=== PATIENT | male | born 1970 | race Caucasian/White ===

== ENCOUNTER 2017-10-16 09:13 | Outpatient (CLI) | payer OTHER ==
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
== END 2017-10-16 09:14 | disposition home or self-care (01) ==
LOC: SCSMRI 09:13
PROVIDERS: ATTEND Family Medicine
DX: S50.02XA Contusion of left elbow, initial encounter (principal); M77.12 Lateral epicondylitis, left elbow

== ENCOUNTER 2018-10-29 14:45 | Inpatient (IN) | payer OTHER ==
[2018-10-29] MEDS ORDERED: Ondansetron PF 4 MG/2 ML Vial ONE (16:21)
[2018-10-29] MEDS ORDERED: Morphine 4 MG/ML VIAL ONE (16:21)
[2018-10-29] MEDS ORDERED: Bupivacaine HCl 0.5%/Epinephrine 1:200,000/PF 30 ml Vial ONE (18:40)
[2018-10-29] MEDS ORDERED: Thrombin 5000 UNITS/5 ML VIAL ONE (18:40)
[2018-10-29] MEDS ORDERED: ceFAZolin Sodium (SDC) 2 GM/100 ML BAG ONE (18:46)
--- NOTE | 2018-10-29 19:07 | MRI ---
MRI OF LUMBAR SPINE WITH AND WITHOUT CONTRAST: 10/29/18 INDICATIONS: Back pain. Numbness in the right leg. COMPARISON: Comparison made to CT lumbar spine 10/27/18. Vertebral bodies of lumbar spine maintained height and alignment. Degenerative disc changes are noted . Loss of disc space at L4-5 and L5-S1. Motion artifact degrades the sequences, especially axial sequences. Mild disc bulge and hypertrophic changes at L1-2, L2-3, and L3-4 without significant central canal or foraminal stenosis at these levels. At L4-5, there is an annular fissure with diffuse disc bulge abutting the thecal sac. There is asymme tric bulge to the right with encroachment on the exiting right nerve root and right foraminal narrowi ng. At L5-S1 level, there is a large extruded disc centrally and paracentrally to the right. There is sup erior and inferior migration of this extruded disc. Just above the L5-S1 disc space is an extruded fr agment measuring 12 mm AP dimension compressing the anterior thecal sac extending into the subarticul ar zone on the right. At the disc space, a large disc extrusion centrally and to the right compresses the thecal sac resulting in severe central canal stenosis. This large disc fragment measures 14 mm A P dimension. Inferior migration is seen with a fragment inferior to the disc space within the spinal canal centrally and to the right measuring 12 mm compressing the thecal sac and displacing the tk sing nerve root on the right. IMPRESSION: 1. Large disc extrusion at L5-S1 with both superior and inferior migration of a large extruded d isc as described above. 2. Annular fissure with broad based bulge at L4-5 as described. POS: JUAREZ
--- NOTE | 2018-10-29 19:11 | CON ---
DATE OF CONSULTATION: 10/29/2018 CHIEF COMPLAINT: Urinary incontinence. 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 He is also insensate with respect to the right leg and the saddle region including his penis, scrotum, and rectal region. He despite those findings is relatively intact from a strength perspective with the exception of minor plantar flexion weakness on the right, graded 3/4. He had an MRI scan performed emergently in the ER, which revealed the presence of a very large extruded disk fragment at the L5 level with complete obliteration of the spinal canal leading to his symptoms of cauda equina. I reviewed with him his imaging, his diagnosis, and the proposed treatment, which is emergent surgery to include decompression and diskectomy in order to give his bowel, bladder, and sensory abnormality a chance to recover. I answered all of his questions as well as those of his . I explained all the risks, benefits, and alternatives to the procedure, and they have offered what I believe to be informed consent to move forward with an L5 decompression and diskectomy. Job ID: [id number]
[2018-10-29] MEDS ORDERED: Bisacodyl 10 MG SUPP PR PRN (20:33)
[2018-10-29] MEDS ORDERED: Mag-Al 1200 mg/1200 mg/30 ML UDCUP PO PRN (20:33)
[2018-10-29] MEDS ORDERED: Cyclobenzaprine 10 MG TAB PO PRN (20:33)
[2018-10-29] MEDS ORDERED: Ondansetron PF 4 MG/2 ML Vial IVP PRN (20:33)
[2018-10-29] MEDS ORDERED: Acetaminophen/Codeine 30-300mg Tablet PO PRN (20:33)
[2018-10-29] MEDS ORDERED: Acetaminophen 325 MG TAB PO PRN (20:33)
[2018-10-29] MEDS ORDERED: Morphine 2 MG/ML SYRINGE SLOW IVP PRN (20:33)
[2018-10-29] MEDS ORDERED: diphenhydrAMINE 50 MG/ML VIAL IVP PRN (20:33)
[2018-10-29] MEDS ORDERED: Meperidine HCl/PF 25 MG/ML VIAL ONE (20:35)
[2018-10-29] MEDS ORDERED: Promethazine HCl 25 MG/ML VIAL SLOW IVP PRN (20:41)
[2018-10-29] MEDS ORDERED: Meperidine HCl/PF 25 MG/ML VIAL SLOW IVP PRN (20:41)
[2018-10-29] MEDS ORDERED: PACU-Morphine 4MG/ML VIAL SLOW IVP PRN (20:41)
[2018-10-29] MEDS ORDERED: Promethazine HCl 25 MG/ML VIAL IM PRN (20:41)
[2018-10-29] MEDS ORDERED: HYDROmorphone 2 MG/ML VIAL SLOW IVP PRN (20:41)
[2018-10-29] MEDS ORDERED: Morphine Sulfate 2 MG/ML SYRINGE SLOW IVP PRN (20:41)
[2018-10-29] MEDS ORDERED: Ondansetron HCl/PF 4 MG/2 ML Vial IVP PRN (20:41)
[2018-10-29] MEDS ORDERED: Fentanyl 100 MCG/2 ML VIAL ONE (21:11)
[2018-10-29] MEDS: Sodium Chloride 0.9% 1,000 ML IV SCH (22:35)
[2018-10-29] MEDS: CEFAZOLIN 2 GM, Admixture Fee 1 EACH in Sodium Chloride 0.9% 100 ML IVPB SCH (22:35)
[2018-10-30] MEDS: Acetaminophen/Codeine 30-300mg Tablet PO PRN ×5 (00:29→21:04)
--- NOTE | 2018-10-30 03:00 | OP ---
DATE OF PROCEDURE: 10/29/2018 TESTER EQUIPMENT: Roger Barrios PA-C INDICATION: Prevent further neurologic decline. DIAGNOSIS: Cauda equina syndrome with incontinence, numbness, and pain. PROCEDURES PERFORMED: L5 laminectomy, L5 diskectomy. ANESTHESIA: General. DESCRIPTION OF PROCEDURE: The patient was brought into the operating room and placed under general anesthesia. He was flipped from the supine to prone position on the operating room table. A linear incision was planned over the L5 spinous process. After prepping and draping, and after an appropriate operative pause, the incision was created. The soft tissues were swept away from midline. A self-retaining retractor was placed in the wound for optimal exposure. After confirming the appropriate level with C-arm fluoroscopy, rongeurs and Kerrisons were used to perform a complete laminectomy of L5. The laminectomy extended into medial third of both facet joints. The protuberant dura was identified and a large protuberant extruded disk mass in the axilla between the thecal sac and the S1 nerve root. The disk was carefully removed as were superiorly and inferiorly migrated components. At the end, the thecal sac and descending nerve roots were well decompressed. The wound was irrigated. Hemostasis was maintained throughout. The wound was then closed in anatomic layers and a pressure dressing was applied. There were no known procedural complications. Job ID: [id number]
[2018-10-30] MEDS: CEFAZOLIN 2 GM, Admixture Fee 1 EACH in Sodium Chloride 0.9% 100 ML IVPB SCH (05:26)
[2018-10-30] MEDS ORDERED: Tamsulosin HCl 0.4 MG CAP PO SCH (06:00)
[2018-10-30] MEDS ORDERED: Bisacodyl 10 MG SUPP PR SCH (10:30)
[2018-10-30] MEDS: Sodium Chloride 0.9% 1,000 ML IV SCH ×2 (11:15→22:04)
--- NOTE | 2018-10-30 11:19 | PRG ---
DATE OF SERVICE: 10/30/2018 Mr. Parra is one day status post emergent diskectomy for cauda equina syndrome. He has had improvement in the sensation in the right leg. He is ambulating in the hallways without difficulty. He continues to remain incontinent of the urine and also is having intermittent episodes of retention as well. He is also insensate along the scrotal and saddle area. I have talked with Dr. Chang. He has already visited with him. She has asked to keep him overnight so we can measure postvoid residuals with the plan to likely dismiss him home tomorrow possibly with a catheter. Overall, I am pleased with his progress as is he. He has minimal to no pain. Job ID: [id number] [facility]
--- NOTE | 2018-10-30 13:11 | CON ---
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 He states that his last bowel movement was approximately 5 to 7 days ago, has had acute onset of urinary urge incontinence with sensation of slow stream, hesitancy. Urinary frequency has been variable from every 1-2 hours to every 4-6 hours. The patient underwent L5 laminectomy, diskectomy by Dr. Barnard on October 29. The patient is being transitioned to be discharged. Due to urgency, urge incontinence, Urologic consultation obtained. I did ask the nursing staff to check his postvoid residual. Per nursing staff, approximately 220 mL of PVR was noted. He denies prior history of STD, dysuria, gross hematuria, recurrent UTI, or trauma. He denies family history of prostate cancer. He is , has 5 children. He denies prior history of incontinence. PAST MEDICAL HISTORY: As above. Cauda equina; urge incontinence, neurogenic. SURGICAL HISTORY: L5 diskectomy and laminectomy on October 29. ALLERGIES: HE HAS NO KNOWN DRUG ALLERGIES. SOCIAL HISTORY: As above. 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 Lives in a private residence with his extended family, 5 children. Denies tobacco abuse. REVIEW OF SYSTEMS: A 10-point review of systems as above, otherwise noncontributory. PHYSICAL EXAMINATION: VITAL SIGNS: Stable. He is afebrile. 97.6, 63, 18, 93, 120/73. I's and O's, he has voided approximately 550 to 400 mL, and PVR 220 per nursing staff. GENERAL: The patient appears to be in no acute distress. HEENT: Unremarkable. HEART: Regular rate. LUNGS: Clear. ABDOMEN: Soft, nontender, nondistended. : Circumcised phallus. Meatus is grossly unremarkable. Testes are descended. Prostate palpated to be approximately 25 to 30 g with no discrete nodularity. EXTREMITIES: No cyanosis, clubbing, or edema. NEUROLOGIC: The patient states that he is recovering. Sensation appears to be intact. He says that he has overall improved strength of his right lower extremity and sensation is slowly returning. Resolution of saddle-like paresthesia per the patient. PSYCHIATRIC: Appears to be appropriate and intact. PERTINENT LABORATORY DATA: White count 7, hemoglobin 15, platelets 206. Creatinine 0.82. On October 27, 2018, UA is unremarkable. CURRENT MEDICATIONS: 1. Tylenol No. 3. 2. Maalox. 3. Dulcolax. 4. Flexeril. 5. Benadryl. 6. Colace. 7. Morphine. 8. Zofran. 9. Flomax 0.4 mg, started on October 30, was just started this morning. PERTINENT IMAGING: Lumbar spine MRI demonstrates a large disk extrusion of L5- S1, annular fissure of L4-L5. IMPRESSION AND PLAN: 1. 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 2. History of urge incontinence present for the last one week with presentation of cauda equina. 3. Constipation. Physical exam is grossly unremarkable. I do agree with Flomax. We may increase Flomax to b.i.d., strict bowel regimen is advised. Importance of daily regular bowel movement to expedite return of bowel and urinary function discussed with him in detail. I will monitor his voiding status for the next 24 hours. He is to be catheterized if PVR is greater than 300 mL. Pending review of his voiding diary , decision will be made regarding [facility] teaching versus indwelling Kenny catheter observation. I do not recommend Tylenol No. 3 for pain as it is significantly constipating. Please reassess for alternative options for pain management. Conversely, if Tylenol No. 3 is provided, he must be on strict aggressive bowel regimen daily as constipation will result in persistent urinary retention. Thank you for the consult. will follow along on this admission. Job ID: [id number] [facility]ie
[2018-10-30] MEDS: Tamsulosin HCl 0.4 MG CAP PO SCH (20:59)
[2018-10-30] MEDS: Docusate 100 MG CAP PO SCH (20:59)
[2018-10-31] MEDS: Acetaminophen/Codeine 30-300mg Tablet PO PRN ×2 (04:45→09:41)
--- NOTE | 2018-10-31 09:10 | PRG ---
DATE OF SERVICE: 10/31/2018 SUBJECTIVE: The patient without complaints, doing well, he has not had a bowel movement since Sunday, I did provide a suppository yesterday, had one BM. I did instruct nursing staff to place Kenny catheter due to PVR of 820 mL. Currently , has an indwelling Kenny catheter. OBJECTIVE: ABDOMEN: Soft, nontender, nondistended. LABORATORY DATA: Urine output 3+ L, clear. His catheter was transitioned to leg bag. Instructions provided regarding leg bag, gravity bag use. His admitting UA is grossly unremarkable. IMPRESSION AND PLAN: Mr. Parra is a pleasant 48-year-old male, who was admitted for cauda equina, status post emergent laminectomy decompression. 1. Neurogenic bladder secondary to cauda equina with constipation as well. I discussed with Mr. Parra regarding importance of bowel regimen along with bladder rehab. As he does have significant postvoid residual of 820 mL, he was in overflow incontinence over the last few weeks. I informed the patient that we should allow his bladder rest with indwelling Kenny catheter due to significant PVR. He will return to clinic next week as a work-in appointment for a voiding trial. He is informed that if he is unable to successfully pass his urine, we will convert him to CIC teaching. Please discharge him with Flomax b.i.d., strict bowel regimen is advised. I did review with the patient regarding constipating side effect with Tylenol. 2. Importance of daily bowel regimen with stool softeners [id number] informed. The patient is cleared to be discharged from urologic perspective. Job ID: [id number] [facility]
--- NOTE | 2018-10-31 09:10 | PRG ---
DATE OF SERVICE: 10/31/2018 Mr. Parra is now postop day 2 following lumbar decompression in the emergent setting for cauda equina syndrome. He has continued to have increasing sensation in his right lower extremity that he is very pleased with. He still has some reduced sensation in his genitals and unfortunately has continued to have post-void residuals in the 700 and 800s, prompting Kenny catheter placement yesterday under the direction of Dr. Chang. From a surgical perspective, we believe now he can be discharged home and will do so today with planned followup in 2 weeks. He also has a followup already planned with Dr. Chang in our office in one week regarding the Kenny that has been placed, he will go home with that and will attempt spontaneous voiding in one week in our office. I will also send scripts into his pharmacy, it should be in [place] today. Job ID: [id number]
[2018-10-31] MEDS: Tamsulosin HCl 0.4 MG CAP PO SCH (09:41)
[2018-10-31] MEDS: Docusate 100 MG CAP PO SCH (09:41)
[2018-10-31 15:32] VITALS: BP 151/83; TEMP 97.8
[2018-10-31] MEDS: Sodium Chloride 0.9% 1,000 ML IV SCH (15:48)
== END 2018-10-31 17:56 | disposition home or self-care (01) | DRG 30 ==
LOC: ERS 14:45 → SDC/OP 18:37 → SURG B 20:33
PROVIDERS: ADMIT Neurological Surgery; ATTEND Neurological Surgery
PROC: 0SB20ZZ Excision of Lumbar Vertebral Disc, Open Approach (ICD-10-PCS; principal; 2018-10-29)
PROC: 01NB0ZZ Release Lumbar Nerve, Open Approach (ICD-10-PCS; 2018-10-29)
PROC: 00NY0ZZ Release Lumbar Spinal Cord, Open Approach (ICD-10-PCS; 2018-10-29)
PROC: 0T9B70Z Drainage of Bladder with Drainage Device, Via Natural or Artificial Opening (ICD-10-PCS; 2018-10-30)
DX: G83.4 Cauda equina syndrome (principal); K59.00 Constipation, unspecified; N39.498 Other specified urinary incontinence; N32.81 Overactive bladder
CPT/HCPCS: 72158; 76000; 96361; 96374; 96375; J0670; J0690; J2175; J2270; J2405; J3010; J3490

== ENCOUNTER 2018-11-14 21:23 | Inpatient (IN) | payer OTHER ==
[2018-11-14] MEDS ORDERED: Sodium Chloride 0.9% 1,000 ML IV SCH (23:49)
[2018-11-14 23:56] VITALS: BMI 31.2
[2018-11-15] MEDS: cefTRIAXone\\ROCEPHIN 2 GM in Sodium Chloride 0.9% 100 ML IVPB SCH ×2 (00:25→23:37)
[2018-11-15] MEDS: Sodium Chloride 0.9% 1,000 ML IV SCH ×4 (00:26→23:43)
[2018-11-15] MEDS ORDERED: Ondansetron PF 4 MG/2 ML Vial IVP PRN (01:36)
[2018-11-15] MEDS ORDERED: Acetaminophen 325 MG TAB PO PRN (01:36)
[2018-11-15] MEDS ORDERED: Acetaminophen 650 MG Suppository PR PRN (01:36)
[2018-11-15] MEDS ORDERED: Ondansetron ODT 4 MG TAB PO PRN (01:36)
[2018-11-15] MEDS ORDERED: Acetaminophen/Codeine 30-300mg Tablet PO PRN (01:37)
--- NOTE | 2018-11-15 03:18 | HP ---
PRIMARY CARE DOCTOR FOR THIS PATIENT: Unknown. CODE STATUS: Full code. TIME OF EVALUATION: 12:15 a.m. CHIEF COMPLAINT FOR THIS PATIENT: Burning on urination. HISTORY OF PRESENT ILLNESS: This is a 48-year-old male patient with past medical history of recent laminectomy of the lumbar area. Two weeks ago, the patient had cauda equina syndrome and has remained with neurogenic bladder. The patient went home with a catheter placed and has been having fever and burning on urination for a couple of days. For that reason, he presented to [place] and he was found to have a heart rate of 130 and fever of 102. For that reason, he is being admitted to the hospital, associated with chills. No clear triggers. No alleviating factors. Urine is positive. REVIEW OF SYSTEMS: CONSTITUTIONAL: The patient has fever, chills, and generalized weakness. RESPIRATORY: No cough, sputum production or shortness of breath. CARDIOVASCULAR: No chest pain or palpitations. GASTROINTESTINAL: No nausea. No vomiting, diarrhea or abdominal pain. PHLEBOTOMIST LAB ASSISTANT: No dizziness, headache or feeling lightheaded. GENITOURINARY: No burning on urination. Indwelling catheter is present. EXTREMITIES: No leg swelling. All other systems were reviewed and negative except for the findings mentioned above. PAST MEDICAL HISTORY: The patient has recent surgery for cauda equina syndrome with neurogenic bladder. PAST SURGICAL HISTORY: Plate and eight screws in the left leg, appendectomy, and history of recent laminectomy in the lumbar area. PSYCHIATRIC HISTORY: No previous psych history. FAMILY HISTORY: Reviewed, noncontributory to current presentation. SOCIAL HISTORY: The patient chews tobacco. No alcohol. No drug use. KNOWN ALLERGIES: No known drug allergies. REPORTED MEDICATIONS: 1. Acetaminophen. 2. Codeine. 3. Tamsulosin. PHYSICAL EXAMINATION: VITAL SIGNS: On presentation, blood pressure 116/66, with heart rate of 103, respiratory rate 18, temperature 99, pain was 0/10, and oxygen saturation was 95% on room air. GENERAL APPEARANCE: The patient is alert, oriented, in no acute distress. HEENT: Eyes, normal conjunctivae. Moist oral mucosa. Anicteric. No JVD. RESPIRATORY: Bilateral air entry. No rales. No wheezes. Symmetric expansion. CARDIOVASCULAR: Normal rate. Regular rhythm. No murmurs. No gallop. No edema. ABDOMEN: Soft. Normal bowel sounds. MUSCULOSKELETAL: Baseline range of motion and strength. SKIN: Warm and intact. No pallor. No rash. No redness. Capillary refill seems to be intact. NEUROLOGIC: No evidence of any new focal weakness. Cranial nerves seems to be intact. PSYCHIATRIC: The patient is in good mood. No anxiety. Optimal judgment. GENITOURINARY: The patient has distention of the bladder with indwelling Kenny catheter. DIAGNOSTIC DATA: Chest x-ray was done, was negative. LABORATORY DATA: Reviewed. The patient has a white count of 13.7, hemoglobin 15.3, MCV 93.7, and platelet count 288. Chemistry; sodium 137, potassium 3.9, chloride 102, carbon dioxide 23, anion gap 16, BUN 14, creatinine 0.87, GFR greater than 90, and glucose 111. Lactic acid 1.2. Calcium 9.8. Total bilirubin 1.0. LFTs were normal. Urine was done, it was positive for 21 to 50 white counts in urine with urine leukocyte esterase. ASSESSMENT AND PLAN: The patient will be placed in the hospital with following medical problems. 1. Urinary tract infection due to indwelling catheter. The patient has been placed on antibiotics and we will follow cultures. We will adjust as per sensitivity. 2. Neurogenic bladder with indwelling catheter, Kenny. This will place him at risk for recurrent infections as the patient had been in the hospital recently. The patient follows with Urology as outpatient, has a followup appointment this week. 3. Deep venous thrombosis prophylaxis. 4. Sepsis. The patient has white count of 13.7. The patient presented with fever. Source is urinary tract infection. Treatment as above. We will hydrate as needed. Job ID: [id number]
[2018-11-15 04:54] LABS: #Eosinphils 0.1 thou/uL (0.0-0.7); #Lymphocytes 2.6 thou/uL (1.20-3.40); #Monocytes 1.3 thou/uL (0.11-0.59); #Neutrophils 7.4 thou/uL (1.40-6.50); %Basophils 0.4 % (0.0-1.0); %Eosinophils 1.2 % (0.0-10.0); %Lymphocytes 22.4 % (21.0-51.0); %Monocytes 11.2 % (0.0-10.0); %Neutrophils 64.8 % (42.0-75.0); Hemoglobin 12.6 g/dL (14.0-18.0); Mean Corpuscular Hemoglobin 31.3 pg (27.0-31.0); Mean Corpuscular Volume 95.1 fL (78.0-98.0); Mean Platelet Volume 8.3 fL (7.4-10.4); Platelet Count 230 thou/uL (130-400); RBC Distribution Width 11.1 % (11.5-14.5); Red Blood Cell (RBC) Count 4.01 mill/uL (4.70-6.10); White Blood Cell (WBC) Count 11.5 thou/uL (4.8-10.8)
[2018-11-15 05:16] LABS: Anion Gap 12 mmol/L (10-20); BUN (Urea Nitrogen) 13 mg/dL (8.9-20.6); Calc. Creatinine Clearance 194 mL/min (70-130); Calcium 8.7 mg/dL (7.8-10.44); Carbon Dioxide 23 mmol/L (22-29); Chloride 105 mmol/L (98-107); Estimated GFR-MDRD Greater than 90; Glucose 108 mg/dL (70-105); Potassium 3.7 mmol/L (3.5-5.1); Sodium 136 mmol/L (136-145)
[2018-11-15] MEDS ORDERED: Bisacodyl 10 MG SUPP PR PRN (07:31)
[2018-11-15] MEDS: Docusate 100 MG CAP PO SCH ×2 (08:05→20:29)
[2018-11-15] MEDS: Tamsulosin HCl 0.4 MG CAP PO SCH ×2 (08:05→20:29)
[2018-11-15] MEDS: Cyclobenzaprine 10 MG TAB PO SCH ×3 (08:05→20:29)
[2018-11-15] MEDS: Enoxaparin Sodium 40 MG/0.4 ML SYRINGE SC SCH (08:06)
--- NOTE | 2018-11-15 10:23 | CON ---
DATE OF CONSULTATION: 11/15/2018 REASON FOR CONSULT: UTI, neurogenic bladder. HISTORY OF PRESENT ILLNESS: Mr. Parra is a pleasant 48-year-old male, whom I had seen as an inpatient consultation per request by Dr. Barnard as he underwent emergent diskectomy and laminectomy as he presented with cauda equina syndrome with history of urinary retention, severe constipation. His lower extremity strength continues to improve, he continues to have saddle distribution paresthesia. He does have some sensation to void and has an indwelling urethral Kenny catheter. I saw him as an outpatient. After evaluating him in-house, we discussed transitioning to CIC for bladder rehabilitation. He declined CIC, requested Kenny catheter to remain in situ for few more weeks and then repeat a voiding trial. He had been constipated, Tylenol No. 3 was provided by [facility] and has had significant constipation. He is passing gas, continues to be constipated with small bowel movements. He denies nausea or vomiting. He presented to an outside emergency room due to history of malaise, fever, or chills. Per review of records, he presented with fever of 102, tachycardic at 130. With fluids and IV antibiotics, he has clinically improved. Urine culture has been ordered pending, and Kenny catheter was exchanged at the presenting emergency room. Currently, he is resting comfortably, at bedside. Unfortunately due to insurance issues, the patient had to transition care to [facility], has appointment with Dr. Chapman next week. PAST MEDICAL HISTORY: Cauda equina, October 2018. PAST SURGICAL HISTORY: Appendectomy; left leg surgery; L5 laminectomy and diskectomy by Dr. Barnard, October 29, 2018, FAMILY HISTORY: Positive coronary artery disease and CVA. 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 Denies illicit drug use. ALLERGIES: NO KNOWN DRUG ALLERGIES. REVIEW OF SYSTEMS: Ten-point review of systems as above, otherwise noncontributory. PHYSICAL EXAMINATION: VITAL SIGNS: Yesterday, temperature 102. Currently, he is afebrile, 98, 82, 20 , 97, 116/69. GENERAL: The patient appears to be resting comfortably. Looks well. HEENT: Unremarkable. HEART: Regular rate. LUNGS: Clear. ABDOMEN: Soft, nontender, nondistended. No rigidity. : Kenny catheter draining yellow urine. Testes are descended with no evidence of epididymo-orchitis changes or swelling. EXTREMITIES: No cyanosis, clubbing, or edema. NEUROLOGIC: He continues to have saddle distribution paresthesia, otherwise lower extremity strength and sensation appears to be intact. PERTINENT LABORATORY DATA: White count 11, hemoglobin 12, platelets 230. Creatinine 0.7. UA from November 14 demonstrates 100 protein, 21 to 50 rbc's, 21 to 50 wbc's, moderate leukocytes, negative nitrites, 3+ bacteria. Culture is pending. Currently, he is on Rocephin. IMPRESSION AND PLAN: Mr. Parra is a pleasant 48-year-old male with cauda equina syndrome, status post decompression laminectomy. 1. Cauda equina resulting in neurogenic bladder retention. 2. Constipation. I do recommend discontinuing Tylenol No. 3 as it is severely constipating. Agree with broad-spectrum antibiotics with Rocephin as he is responding. I am okay for him to continue. Indwelling Kenny catheter to continue. As advised, I do prefer the patient to be on CIC subsequently; however, this is not the time to transition to CIC in presence of an active UTI. We will continue indwelling urethral Kenny catheter. Await culture sensitivity to finalize and can be transitioned to oral antibiotics if afebrile for more than 24 to 48 hours. Anticipate the patient will be in-house likely through the weekend. He has followup with [facility] to transition care next week. Continue Flomax. Job ID: [id number] [facility]
--- NOTE | 2018-11-15 12:29 | PDOC.EVN ---
Event Note - Event Note Event Note: Reviewed records. Examined patient. Has UTI due to indwelling Kenny. Doing well right now. Await cultures and continue IV Rocephin for now. Ok to ambulate and may go outside.
[2018-11-16] MEDS: Sodium Chloride 0.9% 1,000 ML IV SCH (08:03)
[2018-11-16] MEDS: Cyclobenzaprine 10 MG TAB PO SCH ×3 (08:03→20:47)
[2018-11-16] MEDS: Docusate 100 MG CAP PO SCH ×2 (08:03→20:47)
[2018-11-16] MEDS: Tamsulosin HCl 0.4 MG CAP PO SCH ×2 (08:03→20:47)
[2018-11-16] MEDS: Enoxaparin Sodium 40 MG/0.4 ML SYRINGE SC SCH (08:04)
--- NOTE | 2018-11-16 11:32 | PRG ---
DATE OF SERVICE: 11/16/2018 SUBJECTIVE: The patient without complaints. Denies chills or fever. He has been having bowel movements, however, they are very scant and hard, passing flatus. Denies nausea or vomiting. OBJECTIVE: VITAL SIGNS: Stable. Afebrile. 2220 in's, 6.5 L out, he is negative 4.3 L. ABDOMEN: Soft, nontender, nondistended. Kenny catheter clear. LABORATORY DATA: Blood culture negative thus far. Urine culture, greater than 100,000 gram-negative rods and sensitivity, ID in progress. IMPRESSION AND PLAN: 1. Mr. Parra is a pleasant 48-year-old male with history of cauda equina syndrome, recently underwent emergent laminectomy. 2. Cauda equina with neurogenic bladder and constipation. Aggressive bowel regimen is advised. Please provide the patient Dulcolax x1, repeat if needed, fleets enema p.r.n., discussed with the patient at bedside. His urine culture and sensitivity reviewed, anticipated, we will finalize sometime tomorrow. When appropriate sensitivity, targeted antibiotic should be advised for minimum of 7 to 10 days for complicated urinary tract infection. He has close followup with [facility] transitioning care with Urology due to insurance issues. will follow in- house. Job ID: [id number] [facility]
--- NOTE | 2018-11-16 14:20 | PDOC.HOSPP ---
- Subjective Subjective: Doing well. Had some frustration last evening with the BM. He works 2p to 2a and is not on an normal schedule. Typically has BM in the afternoon. Yesterday had some trouble getting himself clean. Has poor sensation around the mid-section. Has been having BM's but less productive than usual. - Objective Vital Signs & Weight: Vital Signs (12 hours) Temp Pulse Resp BP BP Pulse Ox 11/16/18 07:46 98.5 F 92 16 117/78 97 11/16/18 04:00 98.1 F 87 18 129/82 97 Weight Weight 243 lb 9.6 oz I&O: 11/15/18 11/16/18 11/17/18 06:59 06:59 06:59 Intake Total 2220 Output Total 6550 Balance -4330 Result Diagrams: 11/15/18 03:51 11/15/18 03:51 ROS - Medication Medications: Active Medications Generic Name Dose Route Start Last Admin Trade Name Freq PRN Reason Stop Dose Admin Cyclobenzaprine HCl 10 mg 11/15/18 09:00 11/16/18 08:03 Flexeril PO 10 mg TID CASS Administration Docusate Sodium 100 mg 11/15/18 09:00 11/16/18 08:03 Colace PO 100 mg BID CASS Administration Enoxaparin Sodium 40 mg 11/15/18 09:00 11/16/18 08:04 Lovenox SC Not Given 0900 [facility] Ceftriaxone Sodium 2 gm/ 100 mls @ 200 mls/hr 11/14/18 23:59 11/15/18 23:37 Sodium Chloride IVPB 11/20/18 10:00 100 mls Q24HR CASS Administration Tamsulosin HCl 0.4 mg 11/15/18 09:00 11/16/18 08:03 Flomax PO 0.4 mg BID CASS Administration - Exam NAD, awake alert ENT: normocephalic atraumatic, no oropharyngeal lesions, moist mucosa Neck: supple, symmetric, no JVD, no thyromegaly, no lymphadenopathy, no carotid bruit Heart: RRR, no murmur, no gallops, no rubs, normal peripheral pulses Respiratory: CTAB, no wheezes, no rales, no ronchi, normal chest expansion, no tachypnea, normal percussion Gastrointestinal: soft, non-tender, non-distended, normal bowel sounds, no palpable masses, no hepatomegaly, no splenomegaly, no bruit Musculoskeletal: normal tone Psychiatric: normal affect, normal behavior, A&O x 3 Hosp A/P (1) Sepsis Code(s): A41.9 - SEPSIS, UNSPECIFIED ORGANISM Status: Acute (2) Neurogenic bladder Code(s): N31.9 - NEUROMUSCULAR DYSFUNCTION OF BLADDER, UNSPECIFIED Status: Acute (3) UTI (urinary tract infection) Status: Acute (4) Cauda equina syndrome Code(s): G83.4 - CAUDA EQUINA SYNDROME Status: Acute (5) S/P lumbar discectomy Code(s): Z98.890 - OTHER SPECIFIED POSTPROCEDURAL STATES Status: Acute - Plan Blood cultures negative so far. Urine culture looks like skin michelle only. Continue Rocephin and follow up cultures. Trying to be as narrow with the focus of abx as we can. Culture may not be very helpful. Continue Kenny. Will follow up with his Urologist at [facility] after DC. Stool softeners and laxative added by Urology.
[2018-11-16] MEDS: cefTRIAXone\\ROCEPHIN 2 GM in Sodium Chloride 0.9% 100 ML IVPB SCH (23:45)
[2018-11-17 07:39] VITALS: BP 122/76; TEMP 97.8
[2018-11-17] MEDS: Cyclobenzaprine 10 MG TAB PO SCH (10:05)
[2018-11-17] MEDS: Docusate 100 MG CAP PO SCH (10:05)
[2018-11-17] MEDS: Enoxaparin Sodium 40 MG/0.4 ML SYRINGE SC SCH (10:05)
[2018-11-17] MEDS: Tamsulosin HCl 0.4 MG CAP PO SCH (10:05)
--- NOTE | 2018-11-17 12:13 | PRG ---
DATE OF SERVICE: 11/17/2018 SUBJECTIVE: The patient is without complaints. Doing well. Denies fever, chills, or rigors. OBJECTIVE: VITAL SIGNS: Stable. He has been afebrile. ABDOMEN: Soft, nontender, nondistended. : Kenny catheter, clear dilute urine. EXTREMITIES: No cyanosis, clubbing, or edema. He did have a moderate-sized bowel movement yesterday. PERTINENT LABORATORY DATA: Urine culture finalized, demonstrating Serratia, sensitive to Rocephin which he has been treated in-house, resistant to cefoxitin and nitrofurantoin. Spoke with hospitalist. They would discharge the patient with ciprofloxacin. IMPRESSION: 1. Mr. Parra is a pleasant 48-year-old male with history of cauda equina syndrome, status post emergent laminectomy, decompression. 2. Constipation and neurogenic bladder urinary retention, indwelling Kenny catheter. 3. Catheter-related urinary tract infection with history of fever. Blood culture negative. The patient is clinically stable to be discharged as his current culture and sensitivity are finalized. Recommend ciprofloxacin for a minimum of 14 days as he presented with complex urinary tract infection fever. Previously, patient declined CIC. However, he is open to this when he recovers from recent urinary tract infection event. He desires to be discharged with indwelling Kenny catheter to gravity bag as it is easier for him to take care of at home , instead of leg bag. Informed to call me if any questions or concerns. Due to insurance issues, he will be transitioning to [facility], appointment with Dr. Chapman this Sunday. will sign off. Job ID: [id number] [facility] [place] [facility]
--- NOTE | 2018-11-17 23:34 | DIS ---
DATE OF ADMISSION: 11/14/2018 DATE OF DISCHARGE: 11/17/2018 PRIMARY CARE PROVIDER: None. DISCHARGE DIAGNOSES: 1. Sepsis secondary to catheter associated urinary tract infection. 2. Neurogenic bladder with indwelling catheter. CONDITION OF PATIENT ON THE DAY OF DISCHARGE: Stable. I assessed Mr. Parra on the day of discharge. He denies any chest pain or shortness of breath. Vital signs are stable. S1 and S2 are heard, regular. Lungs are clear to auscultation bilaterally. CONSULTATIONS DURING THIS HOSPITALIZATION: Urology, Dr. Chang. DISCHARGE MEDICATIONS: 1. Tylenol No.3 p.r.n. 2. Flexeril 10 mg 3 times a day. 3. Flomax 0.4 mg 2 times a day. 4. Ciprofloxacin 500 mg 2 times a day for 14 days. HOSPITAL COURSE: Mr. Parra is a pleasant 48-year-old gentleman, who was admitted to [facility] on 11/15/2018, for sepsis secondary to catheter associated urinary tract infection in the context of neurogenic bladder with indwelling catheter. He was seen by Urology Service. Urine cultures grew Serratia marcescens, which was resistant to cefoxitin and nitrofurantoin, but sensitive to amikacin, cefepime, ceftazidime, ceftriaxone, ciprofloxacin, gentamicin, levofloxacin, meropenem, tobramycin, and Bactrim. The preliminary urine culture was also growing a gram-negative lloyd, coagulase-negative Staphylococcus and nonhemolytic Streptococcus. He improved clinically. He has been cleared for discharge by Urology Service with prescription for ciprofloxacin 500 mg 2 times a day for 2 weeks. He will follow up with his urologist, Dr. Chapman in 3 days time. FOLLOWUP: With urologist in 3 days time. Many thanks for allowing me to participate in your patient's care. Please feel free to contact me with any questions or concerns. DISCHARGE DESTINATION: Home. TIME SPENT: Total amount of time spent coordinating this discharge: 20 minutes. Job ID: [id number]
== END 2018-11-17 13:23 | disposition home or self-care (01) | DRG 698 ==
LOC: ERS 21:23 → T4-B 23:06
PROVIDERS: ADMIT Hospitalist; ATTEND Hospitalist
DX: T83.511A Infection and inflammatory reaction due to indwelling urethral catheter, initial encounter (principal); A41.9 Sepsis, unspecified organism; G83.4 Cauda equina syndrome; N39.0 Urinary tract infection, site not specified; B96.89 Other specified bacterial agents as the cause of diseases classified elsewhere; Z16.29 Resistance to other single specified antibiotic; B95.7 Other staphylococcus as the cause of diseases classified elsewhere; B95.4 Other streptococcus as the cause of diseases classified elsewhere; F17.220 Nicotine dependence, chewing tobacco, uncomplicated; K59.00 Constipation, unspecified; Z79.899 Other long term (current) drug therapy; Z90.49 Acquired absence of other specified parts of digestive tract
CPT/HCPCS: 36415; 80048; 85025; 87086; 99285; J0696; J1650; J3490

== ENCOUNTER 2021-10-19 11:18 | Emergency (ER) | payer SELFPAY | END 2021-10-19 13:55 | disposition home or self-care (01) | LOC: ERS 11:18 | DX: R20.2 Paresthesia of skin (principal); M51.26 Other intervertebral disc displacement, lumbar region; F17.220 Nicotine dependence, chewing tobacco, uncomplicated; G83.4 Cauda equina syndrome; Z79.899 Other long term (current) drug therapy | CPT/HCPCS: 72148 ==